=== PATIENT | female | born 1980 | race Caucasian/White ===

== ENCOUNTER 2017-03-13 22:41 | Emergency (ER) | payer OTHER ==
[~2017-03-13] VITALS: Ht 175.3 cm; Wt 33.6 kg
[~2017-03-13 22:41] MED LIST: CITA20TA11 PO
[2017-03-13 23:03] VITALS: BP 172/102; PULSE 71; RESP 18; O2SAT 97
--- NOTE | 2017-03-13 23:11 | ED.REPORT ---
HPI-Extremity Problem Upper Date of Service Mar 13, 2017 ED Provider: Tyson Chambers DO A 37 year old female with a history of depression presents to the ED complaining of right wrist pain. The pt hit her arm against a light switch this morning and felt an immediate "electric" pain. The pain has persisted since that point. The pt took ibuprofen prior to arrival with minimal relief. Nursing Notes Stated Complaint: R WRIST INJURY Chief Complaint: Extremity Trauma Nursing Notes Reviewed: Yes Allergies: Coded Allergies: Penicillins (Verified Allergy, Unknown, 03/13/17) Scheduled Citalopram (Citalopram) 20 Mg Tablet 20 MG PO DAILY General Time Seen by MD: 23:10 Chief Complaint Wrist injury right Hx Obtained From: Patient Arrived By: Walk-in Onset Occurred: 9 - 12 hours ago Symptom Duration: Since onset Recent Healthcare: Recent doctor visit Past Medical History Past Medical History Depression Suicidal ideation Past Surgical History none reported Family History Noncontributory Smoking History Unknown if Ever Smoker Social History Lives with a roommate Alcohol Use: Denies alcohol use Drug Use: THC Other Social History: Good social support, Local resident Ambulatory Status Independent Review of Systems Musculoskeletal: Reports: Extremity pain (right wrist), Denies: Back pain Skin: Denies Rash Complete sys rev & neg: except as marked. Physical Exam Initial Vital Signs Vital Signs (First) Date Time Temp Pulse Resp B/P Pulse Ox O2 Delivery O2 Flow Rate FiO2 03/13/17 23:03 36.5 71 18 172/102 97 Room Air Initial VS: Reviewed General/Constitutional: Awake, Alert Neck: Atraumatic, Supple, Full range of motion Respiratory / Chest: Atraumatic, Breath sounds NL, Breath sounds = bilat, No respiratory distress Cardiovascular: Heart rate NL, Regular rhythm, Heart sounds NL Upper Extremity / MS: Atraumatic, Full range of motion Wrist / Hand: No snuffbox tenderness, No deformity, Neurologic intact, Vascular intact tenderness over the ulnar aspect of the right wrist no soft tissue swelling Skin: Atraumatic, Color NL, No rash, Warm, Dry Neurologic: Oriented X3, Speech NL, No motor deficits, No sensory deficits Head / Eyes: Atraumatic, Normocephalic, PERRL, EOMI ENT: Atraumatic, Airway patent, Mucous membranes moist Abdomen: Atraumatic, Soft, Non-tender Back: Atraumatic, Full range of motion Lower Extremity / Pelvis / MS: Atraumatic, Full range of motion Psychiatric: Affect NL, Mood NL Interpretation & Diagnostics Interpretation & Diagnostics: Wrist X-Ray: no definitive fracture opacity over the distal radius Pulse Oximetry Interpretation Pulse Oximetry Interpretation: 97% on room air Pulse Oximetry: Pulse Ox normal Procedures Splint Application - Fx Mgt Splint Application- Fx Mgt: Velcro splint Time: 00:02 Procedure Performed by: ED physician Precise Anatomic Location: right wrist Definitive Fracture Care: Pain control, Splint, Performed by me Post-Procedure / Complications: Cap refill normal, Post splint vascular nl, Post splint neuro nl, Condition improved, Tolerated procedure well, Patient stable Re-Eval/Medical Decision Source of Hx: Old records Re-Evaluation/Progress : Time of Eval: 00:02 Patient Status: Condition improved Re-Evaluation/Progress Note: Pt rechecked, who is comfortable. Splint is applied. The diagnosis and plan for discharge is discussed. The pt understands and agrees with the plan. All questions are addressed at this time. Counseled Regarding: Diagnosis, Lab results, Need for follow-up, When/why to return to ED Discharge & Departure Impression: Primary Impression: Wrist contusion Encounter type: initial encounter Laterality: right Qualified Code: S60.211A - Contusion of right wrist, initial encounter Disposition: Home Discharge Condition All VS Reviewed: Yes Condition: Stable Patient Instructions: Contusions in Adults (ED) Additional Instructions: Keep the splint on for one week. If the pain has not completely resolved at that point, arrange a follow up appointment with Dr. Corley for further evaluation. Take 1 to 2 [place] every six hours as needed for severe pain. Do not drink, drive, or consume acetaminophen while taking the [place]. Return to the emergency department if you develop any new or worsening symptoms. Your blood pressure was elevated at 172/102. Check your blood pressure three times daily and set up a follow up appointment with your primary care physician to address this. You may need to be on antihypertensive medications. Referrals: Max Corley MD [facility] Scribe Attestation Portions of this note were transcribed by Dago Horowitz. I, Dr. Chambers personally performed the history, physical exam and medical decision-making; I reviewed and confirmed the accuracy of the information in the transcribed note. Signed by: Yvette Kahn, 03/14/17 and 0034. copies to: Max Corley MD; [facility] Tyson Chambers DO Mar 13, 2017 23:10 DAGO HOROWITZ Mar 13, 2017 23:42
[2017-03-13] MEDS ORDERED: _HYDROcodone/APAP 5-325 mg Tablet PO PRN (23:55)
[2017-03-14 00:33] VITALS: BP 161/93; PULSE 72; RESP 18
--- NOTE | 2017-03-14 09:11 | DRSVH ---
PROCEDURE: X-RAY RIGHT WRIST COMPLETE, MINIMUM THREE VIEWS ([id number]) INDICATIONS: R wrist pain TECHNIQUE: 3 views of the wrist were acquired. COMPARISON: None. FINDINGS: Bones: No fractures or dislocations. No suspicious bony lesions. Mild negative ulnar variance. Mi ld distal radioulnar joint degeneration and moderate narrowing of the radiocarpal joint. Scaphoid view: Not requested. Soft tissues: No suspicious soft tissue calcifications. IMPRESSION: No displaced fracture seen. If there is continued pain, followup exam or additional imaging such as MRI or CT could be performed for further assessment. Negative ulnar variance and osteoarthritic changes. Dictated by: Harjit SHEETS Interpreted: Negrito Villa MD on 03/14/2017 at 9:10 Transcribed by: PAMELLA on 03/14/2017 at 9:11 Approved by: Negrito Villa M.D. on 03/14/2017 at 9:46
== END 2017-03-14 00:49 | disposition home or self-care (01) ==
LOC: SED 22:41
DX: S60.211A Contusion of right wrist, initial encounter (principal); W22.09XA Striking against other stationary object, initial encounter; Y93.01 Activity, walking, marching and hiking; Y99.8 Other external cause status; Y92.019 Unspecified place in single-family (private) house as the place of occurrence of the external cause; Z88.0 Allergy status to penicillin

== ENCOUNTER 2017-03-26 09:38 | Emergency (ER) | payer OTHER ==
[2017-03-26 09:48] VITALS: PULSE 82; RESP 18; O2SAT 100
--- NOTE | 2017-03-26 09:52 | ED.REPORT ---
HPI-Extremity Problem Upper Date of Service Mar 26, 2017 ED Provider: Aren Hicks MD 37 y/o female presents to the ED complaining of right wrist pain, onset two weeks ago. The pt states she hit her arm against a light switch two weeks ago. She was seen at the ED then and was discharged with instructions to make an appointment with an orthopedist. She states she contacted Dr. Corley but the earliest available appointments is next month. She states she had been wearing a wrist brace and noticed improvement. However, two days ago she was leaning on her wrist and may have twisted it somehow as the pain has returned. Nursing Notes Stated Complaint: RIGHT WRIST PAIN Chief Complaint: Extremity Trauma Nursing Notes Reviewed: Yes Allergies: Coded Allergies: Penicillins (Verified Allergy, Unknown, 03/26/17) Scheduled Citalopram (Citalopram) 20 Mg Tablet 20 MG PO DAILY General Time Seen by MD: 09:48 Chief Complaint Wrist injury right Hx Obtained From: Patient Arrived By: Walk-in Onset Occurred: 1 week ago Symptom Duration: Since onset Caused by: Blunt injury Location: : Wrist right Quality: Painful Severity: Current: Mild Severity: Maximum: Mild Recent Healthcare: Recent doctor visit Similar Sx Previous: No Past Medical History Past Medical History Depression Suicidal ideation Past Surgical History none reported Family History Noncontributory Smoking History Unknown if Ever Smoker Social History Lives with a roommate Alcohol Use: Denies alcohol use Drug Use: THC Other Social History: Good social support, Local resident Ambulatory Status Independent Review of Systems Musculoskeletal: Reports: Joint pain (right wrist) Complete sys rev & neg: except as marked. Physical Exam Initial Vital Signs Vital Signs (First) Date Time Temp Pulse Resp B/P Pulse Ox O2 Delivery O2 Flow Rate FiO2 03/26/17 09:48 36.2 82 18 100 Room Air 03/26/17 09:59 168/84 Initial VS: Reviewed, Vital signs normal Head / Eyes: Atraumatic, Normocephalic Neck: Supple, Non-tender, Full range of motion Lower Extremities: Vascular intact, Neuro intact, No swelling, No tenderness Skin: Warm, Dry, No cyanosis Neurologic: Alert, Oriented, Nonfocal General/Constitutional: Awake, Alert, No acute distress, Cooperative Respiratory / Chest: Atraumatic, Breath sounds NL, Breath sounds = bilat, No respiratory distress, No rales, No rhonchi, No wheezing Cardiovascular: Heart rate NL, Regular rhythm, Heart sounds NL, No gallop, No murmurs, No rubs Upper Extremity / MS: Atraumatic, No erythema, No deformity, Neurologic intact , Vascular intact Wrist / Hand: No deformity, Neurologic intact, Vascular intact Tender over distal ulna Interpretation & Diagnostics X-Ray Interpretation Xray Interpretation: IMPRESSION: No visualized acute fracture or dislocation. However, if clinical concern and/or pain persist, short interval imaging followup in 7-10 days is recommended, as occult injury cannot be definitively excluded. Dictated by: Ammy Arias M.D. on 03/26/2017 at 10:38 Approved by: Ammy Arias M.D. on 03/26/2017 at 10:39 X-Ray Ordered: Wrist right Interpretation / Wet Read by: Interpret - Radiologist Re-Eval/Medical Decision Med Decision/Clinical Course 37-year-old female presenting complaining of right wrist pain 2 weeks after a fall onto right wrist. Initial x-ray was negative for fracture. Repeat x-ray today negative for fracture. Likely sprain. Recommend brace and follow up with primary doctor and orthopedics as scheduled. Re-Evaluation/Progress : Time of Eval: 10:44 Patient Status: Mild relief Re-Evaluation/Progress Note: Rechecked pt. Discussed imaging results, diagnosis and plan to discharge. Pt understands and agrees with the plan. F/U instructions and RTER warning given. All questions addressed. Counseled Regarding: Diagnosis, Need for follow-up, When/why to return to ED Discharge & Departure Impression: Primary Impression: Right wrist pain Disposition: Home Discharge Condition All VS Reviewed: Yes Condition: Stable Patient Instructions: Splint Care (ED) Additional Instructions: Thank you for entrusting us with your care today. Your X-ray showed no fracture. Continue to use the splint as needed. Follow up with your primary care provider later this week. Return to the emergency department in case you experience new or worsening symptoms or weakness, numbness or tingling in the right arm and wrist. Referrals: Erica Bowden DO (PCP) Scribe Attestation Portions of this note were transcribed by Roberto Muniz. I, , personally performed the history, physical exam and medical decision- making;I reviewed and confirmed the accuracy of the information in the transcribed note. Signed by Yvette Marks. 03/26/17 10:53 copies to: Erica Bowden Ben M MD Mar 26, 2017 09:51 Roberto Muniz Mar 26, 2017 10:02
[2017-03-26 09:59] VITALS: BP 168/84; PULSE 67; RESP 16; O2SAT 97
--- NOTE | 2017-03-26 10:40 | DRSVH ---
PROCEDURE: X-RAY RIGHT WRIST COMPLETE, MINIMUM THREE VIEWS ([id number]) INDICATIONS: pain TECHNIQUE: 3 views of the wrist were acquired. COMPARISON: [facility], CR, XR WRIST 3VW RT, 03/13/2017, 23:05. FINDINGS: Bones: No fractures or dislocations. No suspicious bony lesions. Scaphoid view: No visualized fracture. Soft tissues: No suspicious soft tissue calcifications. IMPRESSION: No visualized acute fracture or dislocation. However, if clinical concern and/or pain pe rsist, short interval imaging followup in 7-10 days is recommended, as occult injury cannot be defini tively excluded. Dictated by: Ammy Arias M.D. on 03/26/2017 at 10:38 Approved by: Ammy Arias M.D. on 03/26/2017 at 10:39
== END 2017-03-26 10:50 | disposition home or self-care (01) ==
LOC: SED 09:38
DX: M25.531 Pain in right wrist (principal); Z88.0 Allergy status to penicillin